=== PATIENT | female | born 2000 | race Caucasian/White ===

== ENCOUNTER 2021-04-06 20:09 | Emergency (ER) | payer OTHER ==
[~2021-04-06] VITALS: Ht 157.5 cm; Wt 70.3 kg
--- NOTE | 2021-04-06 20:15 | NUR ---
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
[2021-04-06 20:27] VITALS: BP 118/84
--- NOTE | 2021-04-06 20:27 | NUR ---
BIBS FROM HOME C/O LOWER ABDOMINAL PAIN X3DAYS WITH PAIN URINATING -N/V/D. PT A/OX4. TOLERATING R/A WELL WITH NO SOB. AMB WITH STEADY GAIT
--- NOTE | 2021-04-06 20:30 | NUR ---
URINE COLLECTED AND SENT TO LAB
[2021-04-06 20:46] LABS: BILIRUBIN,URINE NEGATIVE (NEGATIVE); COLOR,URINE YELLOW (YELLOW); LEUKOCYTE ESTERASE ,URINE NEGATIVE (NEGATIVE); NITRITE, URINE NEGATIVE (NEGATIVE); PROTEIN,URINE NEGATIVE (NEGATIVE); UGLUCOSE NEGATIVE (NEGATIVE); UROBILINOGEN,URINE 0.2 EU/dL (0.2)
[2021-04-06 20:54] LABS: BASOPHILS # (AUTO) 0.1 K/uL (0.0-0.2); BASOPHILS % (AUTO) 0.6 % (0.0-2.0); EOSINOPHILS % (AUTO) 15.7 % (0.0-6.0); HEMATOCRIT 42 % (33-45); HEMOGLOBIN 14.4 g/dL (11.5-14.8); LYMPHOCYTES # (AUTO) 2.4 K/uL (0.8-4.8); LYMPHOCYTES % (AUTO) 24.8 % (20.0-44.0); MEAN CORPUSCULAR HGB CONC 34 g/dl (31.0-36.0); MEAN CORPUSCULAR VOLUME 86 fL (82-100); MONOCYTES # (AUTO) 0.7 K/uL (0.1-1.30); MONOCYTES % (AUTO) 6.9 % (2.0-12.0); PLATELET COUNT (AUTO) 198 K/uL (150-450); RED BLOOD CELL COUNT(AUTO) 4.87 MIL/uL (4.0-5.2); WHITE BLOOD COUNT (AUTO) 9.7 K/uL (4.3-11.0)
--- NOTE | 2021-04-06 21:01 | NUR ---
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
[2021-04-06] MEDS ORDERED: IBUPROFEN 600 MG TABLET ONE (21:57)
[2021-04-06] MEDS ORDERED: IBUPROFEN 600 MG TABLET PO ONE (22:00)
[2021-04-06] MEDS ORDERED: IV NS 0.9% 1,000 ML BAG IV ONE (22:30)
--- NOTE | 2021-04-06 22:52 | NUR ---
Patient eloped from facility, LAST SEEN 2219. ER SUSHMA GHOSH notified.
[2021-04-06 23:27] LABS: CALCIUM, SERUM 9.6 mg/dL (8.5-10.1); CREATININE 0.7 mg/dL (0.6-1.3); POTASSIUM 3.6 mmol/L (3.5-5.1)
[2021-04-06 23:33] LABS: TOTAL PROTEIN, SERUM 7.7 g/dL (6.4-8.2)
[2021-04-07 04:24] LABS: BILIRUBIN,TOTAL 0.3 mg/dL (0.2-1.0)
[2021-04-07 05:51] LABS: BILIRUBIN,DIRECT 0.1 mg/dL (0.0-0.2)
== END 2021-04-06 22:52 | disposition left against medical advice (07) ==
LOC: ER 20:21
DX: R30.9 Painful micturition, unspecified (principal)
CPT/HCPCS: 36415; 80048-TC; 80076-TC; 83690-TC; 84703-TC; 85025-TC